=== PATIENT | male | born 1975 | race Caucasian/White ===

== ENCOUNTER 2017-05-30 00:41 | Emergency (ER) | payer OTHER ==
[~2017-05-30] VITALS: Ht 170.2 cm; Wt 89.0 kg
[2017-05-30 00:51] VITALS: BP 145/85; PULSE 94; RESP 18; TEMP 98.6; O2SAT 97
--- NOTE | 2017-05-30 01:00 | PD ---
HPI Chief Complaint: Psychiatric Symptoms Time Seen by Provider: 00:55 Travel History International Travel<30 days: No Contact w/Intl Traveler<30days: No Traveled to known affect area: No History of Present Illness HPI 41-year-old black male presents to emergency department under Matthews act by PD. The patient had contacted police making them aware that he was feeling depressed and suicidal. He has been off his medications. The patient admits to drinking a large amount of alcohol. He just moved to [facility] 1- 2 weeks ago from [place]. Patient states that he has a history bipolar, anxiety and schizophrenia. The patient admits to feeling suicidal but will not elaborate on any current plan on self-harm. He denies any homicidal ideation. Patient denies any recent illness or injury. PFSH Past Medical History Narrative Medical Bipolar, anxiety, schizophrenia Tetanus Vaccination: Unknown Past Surgical History Surgical History: No Previous Surgery Social History Alcohol Use: Yes Tobacco Use: Yes Substance Use: No (denies currently but has a history of substance abuse) Allergies-Medications (Allergen,Severity, Reaction): Coded Allergies: No Known Allergies (Unverified , 05/30/17) Reported Meds & Prescriptions Reported Meds & Active Scripts Active Reported Zoloft (Sertraline HCl) 100 Mg Tab 100 Mg PO DAILY Trazodone (Trazodone HCl) 150 Mg Tablet 150 Mg PO HS Seroquel (Quetiapine Fumarate) 300 Mg Tab 300 Mg PO BID Review of Systems General / Constitutional: No: Fever Eyes: No: Visual changes HENT: No: Headaches Cardiovascular: No: Chest Pain or Discomfort Respiratory: No: Shortness of Breath Gastrointestinal: No: Abdominal Pain Genitourinary: No: Dysuria Musculoskeletal: No: Pain Skin: No Rash Neurologic: No: Weakness Psychiatric: Positive: Anxiety, Depression, Suicidal Ideations, Mood Disorder, No: Disorder of Thought, Substance Abuse, Homicidal Ideation Endocrine: No: Polydipsia Hematologic/Lymphatic: No: Easy Bruising Physical Exam Narrative GENERAL: Well-nourished, well-developed patient. Smells of EtOH and appears intoxicated. SKIN: Warm and dry. HEAD: Normocephalic and atraumatic. EYES: No scleral icterus. No injection or drainage. ENT: No nasal drainage noted. Mucous membranes pink. Airway patent. NECK: Supple, trachea midline. Moves head freely without obvious discomfort. CARDIOVASCULAR: Regular rate and rhythm without murmurs, gallops, or rubs. RESPIRATORY: Breath sounds equal bilaterally. No accessory muscle use. GASTROINTESTINAL: Abdomen soft, non-tender, nondistended. EXTREMITIES: No cyanosis or edema. BACK: Nontender without obvious deformity. No CVA tenderness. NEURO: Patient is alert and oriented. no sensorimotor deficits. Nonfocal. Mild slurred speech. PSYCH: No delusions. No auditory or visual hallucinations. Data Data Last Documented VS Vital Signs Date Time Temp Pulse Resp B/P (MAP) Pulse Ox O2 Delivery O2 Flow Rate FiO2 05/30/17 00:51 98.6 94 18 145/85 (105) 97 Orders Orders Complete Blood Count With Diff (05/30/17 00:55) Comprehensive Metabolic Panel (05/30/17 00:55) Thyroid Stimulating Hormone (05/30/17 00:55) Psych Screen (05/30/17 00:55) Drug Screen, Random Urine (05/30/17 00:55) Alcohol (Ethanol) (05/30/17 00:55) Salicylates (Aspirin) (05/30/17 00:55) Tylenol (Acetaminophen) (05/30/17 00:55) Labs Laboratory Tests Test 05/30/17 01:06 05/30/17 01:20 White Blood Count 6.1 TH/MM3 Red Blood Count 4.71 MIL/MM3 Hemoglobin 15.0 GM/DL Hematocrit 43.8 % Mean Corpuscular Volume 92.9 FL Mean Corpuscular Hemoglobin 31.8 PG Mean Corpuscular Hemoglobin Concent 34.2 % Red Cell Distribution Width 13.2 % Platelet Count 277 TH/MM3 Mean Platelet Volume 7.2 FL Neutrophils (%) (Auto) 63.8 % Lymphocytes (%) (Auto) 27.6 % Monocytes (%) (Auto) 6.3 % Eosinophils (%) (Auto) 1.6 % Basophils (%) (Auto) 0.7 % Neutrophils # (Auto) 3.9 TH/MM3 Lymphocytes # (Auto) 1.7 TH/MM3 Monocytes # (Auto) 0.4 TH/MM3 Eosinophils # (Auto) 0.1 TH/MM3 Basophils # (Auto) 0.0 TH/MM3 CBC Comment DIFF FINAL Differential Comment Blood Urea Nitrogen 8 MG/DL Creatinine 0.85 MG/DL Random Glucose 93 MG/DL Total Protein 7.7 GM/DL Albumin 4.4 GM/DL Calcium Level 8.4 MG/DL Alkaline Phosphatase 65 U/L Aspartate Amino Transf (AST/SGOT) 50 U/L Alanine Aminotransferase (ALT/SGPT) 57 U/L Total Bilirubin 0.5 MG/DL Sodium Level 143 MEQ/L Potassium Level 3.7 MEQ/L Chloride Level 107 MEQ/L Carbon Dioxide Level 26.8 MEQ/L Anion Gap 9 MEQ/L Estimat Glomerular Filtration Rate 100 ML/MIN Thyroid Stimulating Hormone 3rd Gen 1.260 uIU/ML Salicylates Level LESS THAN 1.7 MG/DL Acetaminophen Level LESS THAN 2.0 MCG/ML Ethyl Alcohol Level 239 MG/DL Urine Opiates Screen NEG Urine Barbiturates Screen NEG Urine Amphetamines Screen NEG Urine Benzodiazepines Screen NEG Urine Cocaine Screen NEG Urine Cannabinoids Screen NEG MDM Medical Decision Making Medical Screen Exam Complete: Yes Emergency Medical Condition: Yes Medical Record Reviewed: Yes Interpretation(s) Laboratory Tests Test 05/30/17 01:06 05/30/17 01:20 White Blood Count 6.1 TH/MM3 Red Blood Count 4.71 MIL/MM3 Hemoglobin 15.0 GM/DL Hematocrit 43.8 % Mean Corpuscular Volume 92.9 FL Mean Corpuscular Hemoglobin 31.8 PG Mean Corpuscular Hemoglobin Concent 34.2 % Red Cell Distribution Width 13.2 % Platelet Count 277 TH/MM3 Mean Platelet Volume 7.2 FL Neutrophils (%) (Auto) 63.8 % Lymphocytes (%) (Auto) 27.6 % Monocytes (%) (Auto) 6.3 % Eosinophils (%) (Auto) 1.6 % Basophils (%) (Auto) 0.7 % Neutrophils # (Auto) 3.9 TH/MM3 Lymphocytes # (Auto) 1.7 TH/MM3 Monocytes # (Auto) 0.4 TH/MM3 Eosinophils # (Auto) 0.1 TH/MM3 Basophils # (Auto) 0.0 TH/MM3 CBC Comment DIFF FINAL Differential Comment Blood Urea Nitrogen 8 MG/DL Creatinine 0.85 MG/DL Random Glucose 93 MG/DL Total Protein 7.7 GM/DL Albumin 4.4 GM/DL Calcium Level 8.4 MG/DL Alkaline Phosphatase 65 U/L Aspartate Amino Transf (AST/SGOT) 50 U/L Alanine Aminotransferase (ALT/SGPT) 57 U/L Total Bilirubin 0.5 MG/DL Sodium Level 143 MEQ/L Potassium Level 3.7 MEQ/L Chloride Level 107 MEQ/L Carbon Dioxide Level 26.8 MEQ/L Anion Gap 9 MEQ/L Estimat Glomerular Filtration Rate 100 ML/MIN Thyroid Stimulating Hormone 3rd Gen 1.260 uIU/ML Salicylates Level LESS THAN 1.7 MG/DL Acetaminophen Level LESS THAN 2.0 MCG/ML Ethyl Alcohol Level 239 MG/DL Urine Opiates Screen NEG Urine Barbiturates Screen NEG Urine Amphetamines Screen NEG Urine Benzodiazepines Screen NEG Urine Cocaine Screen NEG Urine Cannabinoids Screen NEG Differential Diagnosis MDM: High Differential diagnoses: Schizophrenia, schizoaffective disorder, bipolar, anxiety, depression, adjustment reaction, mood disorder NOS, ODD, depressive disorder NOS, dementia, dementia with agitation, psychosis NOS, substance induced mood disorder, DMDD, Asperger syndrome, infection,electrolyte abnormality, malingering. Narrative Course Mental health screening discussed with the patient. Psychiatric screen ordered. Patient been medically cleared. Diagnosis Primary Impression: Medical clearance for psychiatric admission Additional Impression: Alcohol intoxication Qualified Codes: F10.920 - Alcohol use, unspecified with intoxication, uncomplicated Condition: Stable Gino Valdez May 30, 2017 01:00
[2017-05-30] MEDS ORDERED: SERO300T PO (01:08)
[2017-05-30] MEDS ORDERED: ZOLO100T PO (01:08)
[2017-05-30] MEDS ORDERED: TRAZ1TAB14 PO (01:08)
[2017-05-30 01:16] LABS: AUTOMATED NEUTROPHIL # 3.9 TH/MM3 (1.8-7.7); BASOPHIL % 0.7 % (0.0-2.0); EOSINOPHIL # 0.1 TH/MM3 (0-0.4); EOSINOPHIL % 1.6 % (0.0-4.0); HEMATOCRIT 43.8 % (39.0-51.0); LYMPH % 27.6 % (9.0-44.0); LYMPHOCYTE # 1.7 TH/MM3 (1.0-4.8); MEAN CELL VOLUME 92.9 FL (80.0-100.0); MEAN CORPUSCULAR HEMOGLOBIN 31.8 PG (27.0-34.0); MEAN CORPUSCULAR HGB CONC 34.2 % (32.0-36.0); MEAN PLATELET VOLUME 7.2 FL (7.0-11.0); MONO % 6.3 % (0.0-8.0); MONOCYTE # 0.4 TH/MM3 (0-0.9); NEUT % 63.8 % (16.0-70.0); PLATELET COUNT 277 TH/MM3 (150-450); RED BLOOD COUNT 4.71 MIL/MM3 (4.50-5.90); RED CELL DISTRIBUTION WIDTH 13.2 % (11.6-17.2); WHITE BLOOD COUNT 6.1 TH/MM3 (4.0-11.0)
[2017-05-30 01:34] LABS: ALBUMIN 4.4 GM/DL (3.4-5.0); ALT (GPT) 57 U/L (12-78); AST (GOT) 50 U/L (15-37); BICARBONATE 26.8 MEQ/L (21.0-32.0); BLOOD UREA NITROGEN 8 MG/DL (7-18); CALCIUM 8.4 MG/DL (8.5-10.1); CHLORIDE 107 MEQ/L (98-107); CREATININE 0.85 MG/DL (0.60-1.30); GLOMERULAR FILTRATION RATE 100 ML/MIN (>89); GLUCOSE,RANDOM 93 MG/DL (74-106); SODIUM (NA) 143 MEQ/L (136-145)
[2017-05-30 01:44] LABS: ALKALINE PHOSPHATASE 65 U/L (45-117); TOTAL BILIRUBIN ADULT 0.5 MG/DL (0.2-1.0); TOTAL PROTEIN 7.7 GM/DL (6.4-8.2)
[2017-05-30 02:05] LABS: ACETAMINOPHEN LESS THAN 2.0 MCG/ML (10.0-30.0)
[2017-05-30 06:33] VITALS: BP 110/58; PULSE 73; RESP 18; O2SAT 97
--- NOTE | 2017-05-30 15:41 | HHI.PYPN ---
Subjective Chief Complaint: "suicdial ideation" Remarks Patient is a 41-year-old black male was evaluated in the [place]. He was Matthews acted by the police department. Apparently patient stopped the police admitting feeling depressed and suicidal. Patient also reports he has been off of medication for the last 2 years. He admits to drinking large amounts of alcohol. Blood alcohol level was at 238. He reports he carries a diagnosis of bipolar mood disorder and anxiety. He has been on Haldol and Seroquel in the past. He reports on how patient had extremely. Patient recently moved from [place] to [place] about a week and a half ago patient , this was to work through [employer] for recently. Patient is very tearful throughout his interview and mumbles a lot and difficult to understand. He reports he is homeless and has been for sometime now. He reportedly had plans to jump off a bridge. past psych hx: Patient is here treatment at [facility] in [place]. The last any received treatment was 2 years ago. He has been on Haldol Decanoate felt that worked well for him. He carries a diagnosis of bipolar disorder. He has history of being on Seroquel. inpt Treatment : * Yes * [facility] History of Outpatient Treatment * Yes * CURRENTLY NONCOMPLIANT Substance abuse: Patient was positive for alcohol. History of cocaine use. History of Being in rehab program previously. MSE: Patient is a 41-year-old male, he is in hospital clothes. Patient with poor eye contact. Speech was soft,. His responses patient mumbled. He was tearful and anxious throughout the interview. Kept endorsing that she was very anxious. Mood is reported as depressed, sad. Memory was difficult to assess this patient is preoccupied with his presentation of anxiety and sad mood. Suicidal ideations patient had given history of wanting to jump off, he was unable to contract for safety. Thought process was linear thought content denied any psychosis and did not appear to respond to internal and external stimuli Suicide Risk * Moderate Suicidal Ideation Description * Current Suicide Plan Description * THOUGHT OF JUMPING OFF BRIDGE Mental Status Examination Appearance: Appropriate, Disheveled Consciousness: Alert, Lethargic Orientation: x4 Motor Activity: Normal gait Speech: Hesitant, Slow Language: Adequate Fund of Knowledge: Adequate Attention and Concentration: Adequate Memory: Unremarkable Mood: Sad, Anxious Affect: Irritable, Sad, Anxious Thought Process & Associations: Circumstantial Thought Content: Appropriate Hallucination Type: None Delusion Type: None Suicidal Ideation: No Suicidal Plan: No Suicidal Intention: No Homicidal Ideation: No Homicidal Plan: No Homicidal Intention: No Insight: Adequate Judgment: Adequate Results Labs Test 05/30/17 01:06 05/30/17 01:20 White Blood Count 6.1 TH/MM3 Red Blood Count 4.71 MIL/MM3 Hemoglobin 15.0 GM/DL Hematocrit 43.8 % Mean Corpuscular Volume 92.9 FL Mean Corpuscular Hemoglobin 31.8 PG Mean Corpuscular Hemoglobin Concent 34.2 % Red Cell Distribution Width 13.2 % Platelet Count 277 TH/MM3 Mean Platelet Volume 7.2 FL Neutrophils (%) (Auto) 63.8 % Lymphocytes (%) (Auto) 27.6 % Monocytes (%) (Auto) 6.3 % Eosinophils (%) (Auto) 1.6 % Basophils (%) (Auto) 0.7 % Neutrophils # (Auto) 3.9 TH/MM3 Lymphocytes # (Auto) 1.7 TH/MM3 Monocytes # (Auto) 0.4 TH/MM3 Eosinophils # (Auto) 0.1 TH/MM3 Basophils # (Auto) 0.0 TH/MM3 CBC Comment DIFF FINAL Differential Comment Blood Urea Nitrogen 8 MG/DL Creatinine 0.85 MG/DL Random Glucose 93 MG/DL Total Protein 7.7 GM/DL Albumin 4.4 GM/DL Calcium Level 8.4 MG/DL Alkaline Phosphatase 65 U/L Aspartate Amino Transf (AST/SGOT) 50 U/L Alanine Aminotransferase (ALT/SGPT) 57 U/L Total Bilirubin 0.5 MG/DL Sodium Level 143 MEQ/L Potassium Level 3.7 MEQ/L Chloride Level 107 MEQ/L Carbon Dioxide Level 26.8 MEQ/L Anion Gap 9 MEQ/L Estimat Glomerular Filtration Rate 100 ML/MIN Thyroid Stimulating Hormone 3rd Gen 1.260 uIU/ML Salicylates Level LESS THAN 1.7 MG/DL Acetaminophen Level LESS THAN 2.0 MCG/ML Ethyl Alcohol Level 239 MG/DL Urine Opiates Screen NEG Urine Barbiturates Screen NEG Urine Amphetamines Screen NEG Urine Benzodiazepines Screen NEG Urine Cocaine Screen NEG Urine Cannabinoids Screen NEG Vitals/IOs Vital Signs Date Time Temp Pulse Resp B/P (MAP) Pulse Ox O2 Delivery O2 Flow Rate FiO2 05/30/17 06:33 73 18 110/58 (75) 97 Room Air 05/30/17 00:51 98.6 Assessment & Plan Problem List: (1) Mood disorder ICD Codes: F39 - Unspecified mood [affective] disorder Status: Acute (2) Alcohol intoxication ICD Codes: F10.929 - Alcohol use, unspecified with intoxication, unspecified Status: Acute Assessment & Plan Estimated LOS: 0-5 days Justification for Cont. Inpt. Patient continues to endorse suicidal ideations and appears very depressed. Discharge Planning not at this time Problem Qualifiers (1) Alcohol intoxication: Qualified Codes: F10.920 - Alcohol use, unspecified with intoxication, uncomplicated Patricia Gonzalez MD May 30, 2017 15:41
[2017-05-30 16:12] VITALS: BP 136/80; PULSE 73; RESP 20
[2017-05-31 01:05] VITALS: BP 107/56; PULSE 59; RESP 18; O2SAT 100
[2017-05-31 05:58] VITALS: BP 127/67; PULSE 53; RESP 18; O2SAT 99
[2017-05-31 11:21] VITALS: BP 121/63; PULSE 62; RESP 18; TEMP 98.4; O2SAT 100
[2017-05-31 18:09] VITALS: BP 149/93; PULSE 76; RESP 18; O2SAT 99
[2017-05-31 22:03] VITALS: BP 109/58; PULSE 71; RESP 18; TEMP 97.8; O2SAT 100
--- NOTE | 2017-06-01 09:43 | PD ---
Physical Exam Time Seen by Provider: 09:[address] Gonzalez has evaluated patient, lifted Matthews act and cleared patient for discharge. Data Data Last Documented VS Vital Signs Date Time Temp Pulse Resp B/P (MAP) Pulse Ox O2 Delivery O2 Flow Rate FiO2 05/31/17 22:03 97.8 71 18 109/58 (75) 100 Room Air Orders Orders Complete Blood Count With Diff (05/30/17 00:55) Comprehensive Metabolic Panel (05/30/17 00:55) Thyroid Stimulating Hormone (05/30/17 00:55) Psych Screen (05/30/17 00:55) Drug Screen, Random Urine (05/30/17 00:55) Alcohol (Ethanol) (05/30/17 00:55) Salicylates (Aspirin) (05/30/17 00:55) Tylenol (Acetaminophen) (05/30/17 00:55) Diet Regular Basic (05/30/17 Breakfast) Diet Regular Basic (05/30/17 Lunch) Diet Regular Basic (05/30/17 Dinner) Diet Regular Basic (05/31/17 Breakfast) Diet Regular Basic (05/31/17 Lunch) Diet Regular Basic (05/31/17 Dinner) Diet Regular Basic (06/01/17 Breakfast) Labs Laboratory Tests Test 05/30/17 01:06 05/30/17 01:20 White Blood Count 6.1 TH/MM3 Red Blood Count 4.71 MIL/MM3 Hemoglobin 15.0 GM/DL Hematocrit 43.8 % Mean Corpuscular Volume 92.9 FL Mean Corpuscular Hemoglobin 31.8 PG Mean Corpuscular Hemoglobin Concent 34.2 % Red Cell Distribution Width 13.2 % Platelet Count 277 TH/MM3 Mean Platelet Volume 7.2 FL Neutrophils (%) (Auto) 63.8 % Lymphocytes (%) (Auto) 27.6 % Monocytes (%) (Auto) 6.3 % Eosinophils (%) (Auto) 1.6 % Basophils (%) (Auto) 0.7 % Neutrophils # (Auto) 3.9 TH/MM3 Lymphocytes # (Auto) 1.7 TH/MM3 Monocytes # (Auto) 0.4 TH/MM3 Eosinophils # (Auto) 0.1 TH/MM3 Basophils # (Auto) 0.0 TH/MM3 CBC Comment DIFF FINAL Differential Comment Blood Urea Nitrogen 8 MG/DL Creatinine 0.85 MG/DL Random Glucose 93 MG/DL Total Protein 7.7 GM/DL Albumin 4.4 GM/DL Calcium Level 8.4 MG/DL Alkaline Phosphatase 65 U/L Aspartate Amino Transf (AST/SGOT) 50 U/L Alanine Aminotransferase (ALT/SGPT) 57 U/L Total Bilirubin 0.5 MG/DL Sodium Level 143 MEQ/L Potassium Level 3.7 MEQ/L Chloride Level 107 MEQ/L Carbon Dioxide Level 26.8 MEQ/L Anion Gap 9 MEQ/L Estimat Glomerular Filtration Rate 100 ML/MIN Thyroid Stimulating Hormone 3rd Gen 1.260 uIU/ML Salicylates Level LESS THAN 1.7 MG/DL Acetaminophen Level LESS THAN 2.0 MCG/ML Ethyl Alcohol Level 239 MG/DL Urine Opiates Screen NEG Urine Barbiturates Screen NEG Urine Amphetamines Screen NEG Urine Benzodiazepines Screen NEG Urine Cocaine Screen NEG Urine Cannabinoids Screen NEG MDM Supervised Visit with [facility]: No Narrative Course Dr. Gonzalez has evaluated patient, lifted Byron lomeli and cleared patient for discharge. Patient contracts safety. Denies suicidal or homicidal ideations. Patient will be provided community resource packet to [facility] for follow-up. Has friends and family for support. Patient was medically cleared by alternate provider prior to psych screening. Patient has been evaluated by psychiatry and and is now cleared for discharge. Diagnosis Primary Impression: Alcohol intoxication Qualified Codes: F10.920 - Alcohol use, unspecified with intoxication, uncomplicated Referrals: [facility] (Out patient) [facility] Primary Care Physician Psychiatrist [facility] Patient Instructions: Abuse of Alcohol (ED), Alcohol Dependence (ED), Alcohol Intoxication (ED), General Instructions, Mood Disorders (ED) Additional Instruction: Contract safety to your self and others Stop drinking alcohol Follow-up outpatient with alcoholics [facility] Follow-up with psychiatry Follow-up with primary care provider Follow-up with Jalen Lima Return to the emergency department immediately with worsening of symptoms Med/Other Pt SpecificInfo: No Change to Meds, No Meds Exist/No RX given Disposition: 01 DISCHARGE HOME Condition: Stable Molly Lanier Jun 01, 2017 09:43
--- NOTE | 2017-06-01 09:45 | HHI.PYPN ---
Subjective Chief Complaint: "suicdial ideation" Remarks Patient is a 41-year-old black male was evaluated in the [place] again. Met with patient this morning. he is clearly unhappy that he has not had any counselling or medications. pt is calm and cooperative. he feels he isnt getting what he needs here and wishes to be discharged. Patient is alert oriented to person place and time. He understands that he has a mental illness and that needs to be treated. He discusses in being homeless and difficulty following up with outpatient care. He reports sometimes medication make him sedated and he is unable to work and this was the reason why he stopped taking medications. Patient reports he goes to [facility] in [place], and they have his records. Nursing staff did call and ask for them to fax records here however that is yet to be faxed. Patient does have a history of alcohol abuse. He minimizes this. His blood alcohol level upon admission was 238. Patient occasionally does get tearful when discussing his homelessness as well as his mental illness. He reports he has supports "friends" .He has called a friend to come pick him up. Patient reports he wants to go back to work, so he can generate some money that would help him go back to [place] and to [facility] He reports he carries a diagnosis of bipolar mood disorder and anxiety. Patient has not exhibited any manic symptoms here. During the first evaluation , patient appeared tearful and hopeless. This could be contributed by the alcohol abuse. Today he is engaging with the physician, without any mood fluctuations or dysregulation. He denies active suicidal plans at this time. He gives history of being on on Haldol and Seroquel in the past. He would like to return to [facility] and get himself restarted on the medications. Patient recently moved from [place] to [place] about a week and a half ago patient , this was for work through [employer] recently. he has a plan and is goal directed-wants to go back to work. past psych hx: Patient is here treatment at [facility] in [place]. The last any received treatment was 2 years ago. He has been on Haldol Decanoate felt that worked well for him. He carries a diagnosis of bipolar disorder. He has history of being on Seroquel. inpt Treatment : * Yes * [facility] History of Outpatient Treatment * Yes * CURRENTLY NONCOMPLIANT Substance abuse: Patient was positive for alcohol. History of cocaine use. History of Being in rehab program previously. MSE: Patient is a 41-year-old male, he is in hospital clothes. Patient with good eye contact. Speech was regular rate and rhythm. He is cooperative and engages easily with right. Thought process is linear and thought content no psychotic features no suicidal homicidal ideations or delusions. He does endorse that he has a mood disorder and would like to be treated for the same. Mood he reported is anxious affect is irritable , which seems to be related to him not receiving any medications or services he expects in [facility]. Improved moods. Review of Systems Psychiatric: COMPLAINS OF: Anxiety Except as stated in HPI: all other systems reviewed are Neg Mental Status Examination Appearance: Appropriate, Disheveled Consciousness: Alert, Lethargic Orientation: x4 Motor Activity: Normal gait Speech: Hesitant, Slow Language: Adequate Fund of Knowledge: Adequate Attention and Concentration: Adequate Memory: Unremarkable Mood: Anxious Affect: Appropriate Thought Process & Associations: Intact, Logical, Goal directed Thought Content: Appropriate Hallucination Type: None Delusion Type: None Suicidal Ideation: No Suicidal Plan: No Suicidal Intention: No Homicidal Ideation: No Homicidal Plan: No Homicidal Intention: No Insight: Adequate Judgment: Adequate Results Labs Laboratory Tests Test 05/30/17 01:06 05/30/17 01:20 Calcium Level 8.4 MG/DL (8.5-10.1) Aspartate Amino Transf (AST/SGOT) 50 U/L (15-37) Salicylates Level LESS THAN 1.7 MG/DL Acetaminophen Level LESS THAN 2.0 MCG/ML Ethyl Alcohol Level 239 MG/DL (0-5) Vitals/IOs Vital Signs Date Time Temp Pulse Resp B/P (MAP) Pulse Ox O2 Delivery O2 Flow Rate FiO2 05/31/17 22:03 97.8 71 18 109/58 (75) 100 Room Air Assessment & Plan Problem List: (1) Substance induced mood disorder ICD Codes: F19.94 - Other psychoactive substance use, unspecified with psychoactive substance-induced mood disorder (2) Alcohol intoxication ICD Codes: F10.929 - Alcohol use, unspecified with intoxication, unspecified Status: Acute (3) Depressed bipolar affective disorder ICD Codes: F31.30 - Bipolar disorder, current episode depressed, mild or moderate severity, unspecified Status: Chronic Assessment & Plan D/C PATIENT RECC f/UP[ WITH [facility] [place]. RECC, REHAB FOR SUBS ABUSE. Estimated LOS: 0 days Justification for Cont. Inpt. N./A Problem Qualifiers (1) Alcohol intoxication: Qualified Codes: F10.920 - Alcohol use, unspecified with intoxication, uncomplicated (2) Depressed bipolar affective disorder: Patricia Gonzalez MD Jun 01, 2017 09:45
== END 2017-06-01 10:30 | disposition home or self-care (01) ==
LOC: NEPD 00:41 → NEPJ 06-01 10:30
DX: F10.129 Alcohol abuse with intoxication, unspecified (principal); F20.9 Schizophrenia, unspecified; F31.31 Bipolar disorder, current episode depressed, mild; Z72.0 Tobacco use
CPT/HCPCS: 80053; 80307; 84443; 85025; 99283